=== PATIENT | female | born 1960 | race Caucasian/White ===

== ENCOUNTER 2022-07-22 23:58 | Inpatient (IN) | payer MEDICAID, OTHER ==
[~2022-07-22] VITALS: Ht 165.1 cm; Wt 78.5 kg
[2022-07-23 00:53] LABS: BASOPHILS % (AUTO) 0.5 % (0.0-2.0); EOSINOPHILS % (AUTO) 2.4 % (1.0-6.0); HEMATOCRIT 36.1 % (36-46); HEMOGLOBIN 11.5 g/dL (12.0-16.0); LYMPHOCYTES # (AUTO) 1.6 K/uL (1.0-4.8); LYMPHOCYTES % (AUTO) 19.8 % (22.0-44.0); MEAN CORPUSCULAR HGB CONC 31.8 G/dL (31.0-37.0); MEAN CORPUSCULAR VOLUME 79 fL (80-100); MONOCYTES # (AUTO) 0.7 K/uL (0.1-1.0); NEUTROPHILS # (AUTO) 5.4 K/uL (1.8-7.7); NEUTROPHILS % (AUTO) 68.3 % (40.0-70.0); PLATELET COUNT (AUTO) 122 K/uL (150-450); RED BLOOD CELL COUNT(AUTO) 4.59 MIL/uL (4.00-5.20); RED CELL DISTRIBUTION WIDTH 19.2 % (11.5-14.5)
[2022-07-23 00:58] LABS: ANION GAP 8 mmol/L (8-16); CALCIUM, TOTAL 8.1 mg/dL (8.8-10.5); CARBON DIOXIDE 29 mmol/L (22-29); CHLORIDE 107 mmol/L (98-107); GLOMERULAR FILTR. RATE CALC > 60 mL/min (>60); GLUCOSE,RANDOM 107 mg/dL (70-110); POTASSIUM 3.9 mmol/L (3.5-5.1); SODIUM SERUM 144 mmol/L (136-145)
[2022-07-23 01:00] LABS: AMPHET/METH SCREEN,URINE NEGATIVE (NEGATIVE); BARBITURATE SCREEN, URINE NEGATIVE (NEGATIVE); BENZODIAZEPINES SCREEN,URINE NEGATIVE (NEGATIVE); CANNABINOID SCREEN,URINE NEGATIVE (NEGATIVE); COCAINE SCREEN,URINE NEGATIVE (NEGATIVE); METHADONE SCREEN, URINE NEGATIVE (NEGATIVE); OPIATE SCREEN,URINE NEGATIVE (NEGATIVE); PHENCYCLIDINE SCREEN,URINE NEGATIVE (NEGATIVE)
[2022-07-23 01:04] LABS: ALANINE AMINOTRANSFERASE 26 U/L (12-78); ALBUMIN 3.3 g/dL (3.4-5.0); ALKALINE PHOSPHATASE 92 U/L (46-116); ASPARTATE AMINOTRANSFERASE 62 U/L (15-37)
[2022-07-23 01:08] LABS: ACETAMINOPHEN < 2 mcg/mL (10-30)
[2022-07-23 01:35] LABS: SALICYLATE 1.2 mg/dL (2.8-20.0)
[2022-07-23] MEDS ORDERED: HALOPERIDOL 5 MG TABLET PO PRN (02:45)
[2022-07-23] MEDS ORDERED: LORazepam 2 MG TABLET PO PRN (02:45)
[2022-07-23] MEDS ORDERED: LORazepam 2 MG TABLET PO ONE (03:00)
[2022-07-23] MEDS ORDERED: CALCIUM CARBONATE 500 MG CHEWABLE TABLET CHEW ONE (06:45)
[2022-07-23] MEDS ORDERED: POTASSIUM CHLORIDE 20 MEQ ER TABLET PO ONE (06:45)
[2022-07-23 07:18] LABS: COVID AG,FIA SOURCE NASAL SWAB
[2022-07-23] MEDS ORDERED: KETOROLAC TROMETHAMINE 30 MG/ML VIAL IVP ONE (07:45)
[2022-07-23 19:30] VITALS: BP 139/65; PULSE 74; RESP 20; TEMP 97.8; O2SAT 95
[2022-07-23 19:40] VITALS: BP 139/65; PULSE 74; RESP 18; TEMP 97.8; O2SAT 95
[2022-07-23 20:30] VITALS: BP 137/67; PULSE 80; RESP 18; TEMP 97.8; O2SAT 95
[2022-07-23] MEDS ORDERED: IBUPROFEN 600 MG TABLET PO PRN (20:45)
[2022-07-23] MEDS ORDERED: ACETAMINOPHEN 325 MG TABLET PO PRN (20:45)
[2022-07-23 21:15] LABS: GLUCOMETER DEV NAME(LOC) BV3S.; GLUCOSE,POINT OF CARE 102 MG/DL (70-110)
[2022-07-23 21:43] VITALS: BP 136/70; PULSE 82; RESP 20; TEMP 98; O2SAT 95
[2022-07-23 22:31] VITALS: BP 138/72; PULSE 82; RESP 18; TEMP 98.2; O2SAT 95
[2022-07-24] VITALS (7 sets, daily range): BP systolic 137–149; BP diastolic 60–67; PULSE 18–91; RESP 16–20; TEMP 97.6–98.2; O2SAT 95–98
[2022-07-24] MEDS ORDERED: ONDANSETRON HCL 4 MG TABLET PO PRN (06:45)
[2022-07-24] MEDS ORDERED: ACETAMINOPHEN 325 MG TABLET PO PRN (06:45)
[2022-07-24] MEDS ORDERED: IBUPROFEN 600 MG TABLET PO PRN (06:45)
[2022-07-24] MEDS ORDERED: CloNIDine HCL 0.1 MG TABLET PO PRN (06:45)
[2022-07-24] MEDS ORDERED: MAGNESIUM HYDROXIDE SUSPENSION 30 ML UDCUP PO PRN (06:45)
[2022-07-24] MEDS ORDERED: BACITRACIN 28 GM OINTMENT TP PRN (06:45)
[2022-07-24] MEDS ORDERED: PETROLATUM,WHITE 28 GM JELLY TP PRN (06:45)
[2022-07-24] MEDS ORDERED: LOPERAMIDE HCL 2 MG CAPSULE PO PRN (06:45)
[2022-07-24] MEDS ORDERED: MAG HYDROX/AL HYDROX/SIMETH ES 30 ML SUSPENSION UDCUP PO PRN (06:45)
[2022-07-24] MEDS ORDERED: DOCUSATE SODIUM 100 MG CAPSULE PO PRN (06:45)
[2022-07-24] MEDS ORDERED: ALBUTEROL SULFATE HFA 90 MCG/PUFF 8 GM INHALER IH PRN (06:45)
[2022-07-25 05:53] VITALS: BP 142/70; PULSE 75; RESP 18; TEMP 97.8; O2SAT 98
[2022-07-25 08:18] VITALS: BP 133/62; PULSE 80; RESP 16; TEMP 98.2; O2SAT 96
[2022-07-25 20:25] VITALS: BP 146/66; PULSE 76; RESP 19; TEMP 98.7; O2SAT 96
[2022-07-25] MEDS: ZOLPIDEM TARTRATE 10 MG TABLET PO PRN (21:39)
[2022-07-26 08:11] VITALS: BP 116/59; PULSE 71; RESP 19; TEMP 98; O2SAT 94
[2022-07-26 20:03] VITALS: BP 140/59; PULSE 74; RESP 18; TEMP 97.7; O2SAT 95
[2022-07-26] MEDS: AMITRIPTYLINE HCL 75 MG TABLET PO SCH ×2 (20:55→21:52)
[2022-07-26] MEDS: ZOLPIDEM TARTRATE 10 MG TABLET PO PRN (21:52)
[2022-07-27 08:07] VITALS: BP 111/69; PULSE 80; RESP 16; TEMP 97.6; O2SAT 96
[2022-07-27 20:03] VITALS: BP 127/60; PULSE 73; RESP 17; TEMP 97.8
[2022-07-27] MEDS: AMITRIPTYLINE HCL 75 MG TABLET PO SCH (20:05)
[2022-07-27] MEDS: ZOLPIDEM TARTRATE 10 MG TABLET PO PRN (20:44)
[2022-07-28 08:23] VITALS: BP 120/69; PULSE 81; RESP 16; TEMP 97.9; O2SAT 95
[2022-07-28] MEDS: AMITRIPTYLINE HCL 75 MG TABLET PO SCH (20:13)
[2022-07-28 20:16] VITALS: BP 119/63; PULSE 80; RESP 19; TEMP 97.9; O2SAT 97
[2022-07-29 08:39] VITALS: BP 126/71; PULSE 83; RESP 16; TEMP 97.8; O2SAT 97
[2022-07-29] MEDS: OMEPRAZOLE 20 MG CAPSULE PO PRN (13:08)
[2022-07-29 20:03] VITALS: BP 120/65; PULSE 78; RESP 17; TEMP 97.8
[2022-07-29] MEDS: AMITRIPTYLINE HCL 75 MG TABLET PO SCH (20:11)
[2022-07-29] MEDS: ZOLPIDEM TARTRATE 10 MG TABLET PO PRN (21:26)
[2022-07-30 08:03] VITALS: BP 133/50; PULSE 73; RESP 17; TEMP 97.5; O2SAT 97
[2022-07-30] MEDS: OMEPRAZOLE 20 MG CAPSULE PO PRN (10:20)
[2022-07-30] MEDS: AMITRIPTYLINE HCL 75 MG TABLET PO SCH (20:01)
[2022-07-30] MEDS: ZOLPIDEM TARTRATE 10 MG TABLET PO PRN (22:16)
[2022-07-31 06:50] VITALS: BP 128/62; PULSE 72; RESP 18; TEMP 97.4
[2022-07-31 08:05] VITALS: BP 118/62; PULSE 108; RESP 17; TEMP 97.6; O2SAT 97
[2022-07-31] MEDS: OMEPRAZOLE 20 MG CAPSULE PO PRN (09:51)
[2022-07-31] MEDS: AMITRIPTYLINE HCL 75 MG TABLET PO SCH (20:05)
[2022-07-31 20:11] VITALS: BP 129/59; PULSE 84; RESP 17; TEMP 97.6; O2SAT 98
[2022-07-31] MEDS: ZOLPIDEM TARTRATE 10 MG TABLET PO PRN (21:43)
[2022-08-01 08:11] VITALS: BP 132/69; PULSE 76; RESP 16; TEMP 97.8; O2SAT 96
[2022-08-01] MEDS: ZOLPIDEM TARTRATE 10 MG TABLET PO PRN (20:09)
[2022-08-01] MEDS: AMITRIPTYLINE HCL 75 MG TABLET PO SCH (20:09)
[2022-08-01 20:30] VITALS: BP 121/62; PULSE 93; RESP 18; TEMP 98; O2SAT 97
[2022-08-02 08:27] VITALS: BP 114/63; PULSE 79; RESP 16; TEMP 97.6; O2SAT 98
[2022-08-02] MEDS ORDERED: AMIT75TA55 PO (16:54)
== END 2022-08-02 20:00 | disposition home or self-care (01) | DRG 754 ==
LOC: EMS 07-23 00:01 → B3A 07-23 14:54
PROVIDERS: ADMIT Psychiatry & Neurology Psychiatry; ATTEND Psychiatry & Neurology Psychiatry
DX: F32.9 Major depressive disorder, single episode, unspecified (principal); F10.129 Alcohol abuse with intoxication, unspecified; F41.9 Anxiety disorder, unspecified; Z20.822 Contact with and (suspected) exposure to COVID-19; Y90.8 Blood alcohol level of 240 mg/100 ml or more; G47.00 Insomnia, unspecified; K21.9 Gastro-esophageal reflux disease without esophagitis; K59.00 Constipation, unspecified; T43.212A Poisoning by selective serotonin and norepinephrine reuptake inhibitors, intentional self-harm, initial encounter; Y92.89 Other specified places as the place of occurrence of the external cause; Z71.41 Alcohol abuse counseling and surveillance of alcoholic
CPT/HCPCS: 70450; 71101; 80053; 80307; 82962; 83735; 85025; 93005; 99291; G0480; G0481; J1885